=== PATIENT | female | born 1965 | race Caucasian/White ===

== ENCOUNTER 2017-03-18 08:26 | Emergency (ER) | payer MEDICAID ==
[~2017-03-18] VITALS: Wt 70.5 kg
[2017-03-18] MEDS ORDERED: KETOROLAC 30 MG INJ IV STA (09:08)
[2017-03-18] MEDS ORDERED: SOD CHLORIDE 0.9% 1,000 ML IV STA (09:08)
[2017-03-18] MEDS ORDERED: ONDANSETRON 4 MG INJ IV STA (09:08)
--- NOTE | 2017-03-18 09:19 | ERD ---
ER Documentation Chief Complaint Date/Time DATE: 03/18/17 Chief Complaint Diagnosed with cyst/pelvic mass today at [facility], sent here per patient HPI The patient is a 51-year-old female with no significant past medical history who presents the Emergency Department with complaint of abdominal pain that began approximately one year ago, but worsened on Thursday. The patient reports that her pain began gradually, with onset of constant, aching pain that sometimes radiates to the back. She reports associated nausea and vomiting since this morning, prompting her to visit [facility] Emergency Department. During her visit, a CT of the abdomen and pelvis was performed without contrast, which revealed a cystic versus cystic and solid mass midline, which may originate from the ovaries, though a uterine abnormality is not totally excluded. Given these findings, the patient was discharged home with prescription for Tramadol, and advised to present to this hospital for further evaluation and [employer]IST consultation. The patient therefore presents, concerned about her recent evaluation, and requesting further workup. She does admit to family history of uterine carcinoma, which her mother had. She denies any fevers, sweats, chills. Denies vaginal bleeding. Denies chest pain, palpitations, shortness of breath. Denies headache, dizziness or weakness. No other complaints at this time. The patient is . ROS All systems reviewed and are negative except as per history of present illness. Allergies Allergies: Coded Allergies: No Known Allergy (Unverified , 03/18/17) Physical Exam Vitals Vital Signs Date Time Temp Pulse Resp B/P Pulse Ox O2 Delivery O2 Flow Rate FiO2 03/18/17 16:11 74 18 127/69 99 Room Air 03/18/17 08:32 97.7 77 20 175/79 97 Physical Exam GENERAL: Well-developed, well-nourished, female, in no acute distress. HEENT: Head is normocephalic, atraumatic. No scleral pallor or icterus. Pupils equal, round and reactive to light. Extraocular movements intact. Conjunctiva pink. Moist mucous membranes. NECK: Supple. RESPIRATORY: Lungs are clear to auscultation bilaterally. Equal breath sounds. Normal expiratory effort. CARDIOVASCULAR: Regular rate and rhythm. S1 and S2 normal. Distal pulses are palpable, 2+ bilaterally. Capillary refill is less than 2 seconds. GASTROINTESTINAL: Abdomen is soft, non-tender and non-distended. No guarding, no rebound tenderness. Normal bowel sounds. No gross peritonitis. FLANK: No CVA tenderness. BACK: No midline tenderness. EXTREMITIES: No clubbing, cyanosis, or edema. Normal skin perfusion. Moving all extremities. NEUROLOGIC: The patient is alert, awake, and oriented x 3. No focal neurologic deficits. INTEGUMENT: Skin is intact. Warm and dry. PSYCHIATRIC: Cooperative. Appropriate. Result Diagram: 03/18/17 0955 03/18/17 0955 Results 24 hrs Laboratory Tests Test 03/18/17 09:55 03/18/17 12:14 White Blood Count 16.010^3/ul Red Blood Count 6.1710^6/ul Hemoglobin 14.4g/dl Hematocrit 45.8% Mean Corpuscular Volume 74.2fl Mean Corpuscular Hemoglobin 23.3pg Mean Corpuscular Hemoglobin Concent 31.4g/dl Red Cell Distribution Width 16.4% Platelet Count 00719^3/UL Mean Platelet Volume 9.3fl Neutrophils % 79.8% Lymphocytes % 13.3% Monocytes % 5.4% Eosinophils % 0.7% Basophils % 0.3% Nucleated Red Blood Cells % 0.0/100WBC Neutrophils # 12.810^3/ul Lymphocytes # 2.110^3/ul Monocytes # 0.910^3/ul Eosinophils # 0.110^3/ul Basophils # 0.010^3/ul Nucleated Red Blood Cells # 0.010^3/ul Prothrombin Time 11.7Sec Prothrombin Time Ratio 0.9 INR International Normalized Ratio 0.86 Activated Partial Thromboplast Time 26.7Sec Urine Color YELLOW Urine Clarity SLIGHTLY CLOUDY Urine pH 7.0 Urine Specific [place] 1.013 Urine Ketones NEGATIVEmg/dL Urine Nitrite NEGATIVEmg/dL Urine Bilirubin NEGATIVEmg/dL Urine Urobilinogen NEGATIVEmg/dL Urine Leukocyte Esterase TRACELeu/ul Urine Microscopic RBC 5/HPF Urine Microscopic WBC 2/HPF Urine Squamous Epithelial Cells FEW/HPF Urine Amorphous Crystals FEW/HPF Urine Mucus FEW/HPF Urine Hemoglobin 1+mg/dL Urine Glucose NEGATIVEmg/dL Urine Total Protein NEGATIVEmg/dl Sodium Level 142mmol/L Potassium Level 3.9mmol/L Chloride Level 102mmol/L Carbon Dioxide Level 29mmol/L Anion Gap 15 Blood Urea Nitrogen 11mg/dl Creatinine 0.60mg/dl Glucose Level 126mg/dl Calcium Level 9.0mg/dl Total Bilirubin 0.6mg/dl Direct Bilirubin 0.00mg/dl Indirect Bilirubin 0.6mg/dl Aspartate Amino Transf (AST/SGOT) 31IU/L Alanine Aminotransferase (ALT/SGPT) 39IU/L Alkaline Phosphatase 119IU/L Total Protein 8.7g/dl Albumin 4.2g/dl Globulin 4.50g/dl Albumin/Globulin Ratio 0.93 Lipase 42U/L Carcinoembryonic Antigen 0.5ng/ml CA 19-9 Antigen 3.5U/ml CA 125 Antigen 5.8U/ml Current Medications Medications (Trade) Dose Ordered Sig/Karin Route PRN Reason Start Time Stop Time Status Last Admin Dose Admin Sodium Chloride (NS) 1,000 ml @ 1,000 mls/hr Q1H STAT IV 03/18/17 09:08 03/18/17 10:07 DC 03/18/17 09:58 Ondansetron HCl (Zofran Inj) 4 mg ONCE STAT IV 03/18/17 09:08 03/18/17 09:12 DC 03/18/17 09:57 Ketorolac Tromethamine (Toradol) 30 mg ONCE STAT IV 03/18/17 09:08 03/18/17 09:12 DC 03/18/17 09:57 Procedures/MDM DIAGNOSTIC TESTS AND INTERPRETATION: PROCEDURE: US Pelvis. CLINICAL INDICATION: Pain. TECHNIQUE: Multiple transabdominal and transvaginal sonographic images of the pelvis were obtained. COMPARISON: None. FINDINGS: The uterus is anteverted in position and measures 8.1 x 3.3 x 4.0 cm ( 57 cc). The endometrial complex is homogeneous in echogenicity and measures 4.2 mm. The cervix is normal. There is no free pelvic fluid. The right ovary is not visualized. There is a large complex left adnexal cyst measuring nearly 7.0 cm in greatest dimension. Dense acoustic shadowing is seen within a portion of this cyst compatible with calcification. Numerous linear echoes are seen throughout the cystic portion of the structure. Constellation of imaging findings are most compatible with a large left ovarian dermoid. IMPRESSION: Large complex left adnexal cyst with imaging features most compatible with a large ovarian dermoid. .Mayra Barnhart MD, Date Time Electronically viewed and signed by .Mayra Barnhart MD, MD on 03/18/2017 11:20 CONSULTATION: Discussed patient case with [employer]IST specialist on-call, Dr. Busch , who evaluated the patient bedside and reviewed patient's imaging and results. She requests obtaining CEA, CA 19-9, CA125. She states that at this time, the patient's abdominal examination is benign, and there is absolutely no evidence of torsion. She notes that the patient's imaging findings were incidental, and there is no indication for admission or emergent surgical procedure at this time. She recommends that the patient be discharged home to follow up either with Dr. Curtis, Dr. Lopez, Dr. Cole, or [facility] for further evaluation and surgical removal. MEDICAL DECISION MAKING: This is a 51-year-old female presenting to the Emergency Department for evaluation due to recent abnormal CT imaging result. Patient was seen at another ED this morning, at which time she obtained a CT abdomen and pelvis, which revealed "a cystic versus cystic and solid mass midline which may originate from ovaries, a uterine abnormality is not totally excluded." Patient states that she was discharged, and advised to follow up at this ED for further evaluation. Patient had presented to the other ED due to chronic mid-abdominal pain, which is not currently present. Her abdominal examination was benign, and there is no evidence of acute/surgical abdomen. US imaging was performed, which revealed a large complex left andexal cyst, measuring nearly 7/0 cm in greatest dimension, with dense acoustic shadowing and numerous linear echoes. Patient's findings, per radiologist and Dr. Busch ([employer] PROGRAM SPECIALIST), are most compatible with ovarian dermoid. Patient was evaluated by OB/ HOSPITAL SUPERINTENDENT while in the ED, who recommended that the patient be discharged home to follow up as an outpatient for further evaluation and surgical removal of the adnexal mass. At this time, the patient is in stable condition, pain free, and therefore she will be discharged home with a copy of her laboratory and imaging results, and strict return precautions for signs of deteriorating or worsening condition. She is advised to follow up with an [facility] [employer] PROGRAM SPECIALIST or [facility] in 1-2 days for reevaluation and further management, or return to the ER sooner for any new, concerning or worsening symptoms. I shared my medical decision making and plan with the patient at length and in great detail, and she verbally understands and agrees with the plan for further observation and care as an outpatient. At the time of discharge, all questions were answered. Departure Diagnosis: Primary Impression: Adnexal mass Condition: Stable Patient Instructions: Ovarian Cyst, What Are Ovarian Cysts? Additional Instructions: Llame al doctor GABRIEL y dar carrie KRISTEN PARA DENTRO DE 1-2 SHEPARD.Dgale a la secretaria que nosotros le instruimos hacer esta kristen.Avise o llame si elliott condicin se empeora antes de la kristen. Regresa aqui si peor o no mejor. SANA JONAS PA-C Mar 18, 2017 09:19
[2017-03-18 10:10] LABS: BASOPHILS % 0.3 % (0.0-2.0); EOSINOPHILS # 0.1 10^3/ul (0.0-0.5); EOSINOPHILS % 0.7 % (0.0-7.0); HEMATOCRIT 45.8 % (37.0-47.0); HEMOGLOBIN 14.4 g/dl (12.0-16.0); LYMPHOCYTES # 2.1 10^3/ul (0.8-2.9); LYMPHOCYTES % 13.3 % (15.0-51.0); MEAN CORPUSCULAR HEMOGLOBIN 23.3 pg (29.0-33.0); MEAN CORPUSCULAR HGB CONC 31.4 g/dl (32.0-37.0); MEAN CORPUSCULAR VOLUME 74.2 fl (82.0-101.0); MEAN PLATELET VOLUME 9.3 fl (7.4-10.4); MONOCYTE # 0.9 10^3/ul (0.3-0.9); MONOCYTES % 5.4 % (0.0-11.0); NEUTROPHIL # 12.8 10^3/ul (1.6-7.5); NEUTROPHILS % 79.8 % (39.0-77.0); PLATELET COUNT 351 10^3/UL (140-415); RED BLOOD COUNT 6.17 10^6/ul (4.20-5.40); RED CELL DISTRIBUTION WIDTH 16.4 % (11.5-14.5)
[2017-03-18 10:25] LABS: INR 0.86; PROTIME 11.7 Sec (12.2-14.2); PT RATIO 0.9
[2017-03-18 10:26] LABS: PARTIAL THROMBOPLASTIN TIME 26.7 Sec (25.0-35.0)
[2017-03-18 10:30] LABS: ALBUMIN 4.2 g/dl (3.3-4.9); ALBUMIN/GLOBULIN RATIO 0.93; BILIRUBIN,INDIRECT 0.6 mg/dl (0-1.1); BILIRUBIN,TOTAL 0.6 mg/dl (0.2-1.3); CREATININE 0.6 mg/dl (0.44-1.00); POTASSIUM 3.9 mmol/L (3.5-5.1); TOTAL PROTEIN 8.7 g/dl (6.1-8.1)
[2017-03-18 10:53] LABS: ADD UMIC YES; UR AMORPHOUS CRYSTAL FEW /HPF (NONE SEEN); UR ASCORBIC ACID NEGATIVE (NEGATIVE); UR BILIRUBIN (Dip) NEGATIVE (NEGATIVE); UR BLOOD (Dip) 1+ mg/dL (NEGATIVE); UR CLARITY SLIGHTLY CLOUDY (CLEAR); UR COLOR YELLOW (YELLOW); UR GLUCOSE (Dip) NEGATIVE (NEGATIVE); UR KETONES (Dip) NEGATIVE (NEGATIVE); UR LEUKOCYTE ESTERASE (Dip) TRACE Leu/ul (NEGATIVE); UR MUCUS FEW /HPF (NONE SEEN); UR NITRITE (Dip) NEGATIVE (NEGATIVE); UR RBC 5 /HPF (0-5); UR SPECIFIC GRAVITY (Dip) 1.013 (1.003-1.030); UR SQUAMOUS EPITHELIAL CELL FEW /HPF (FEW); UR TOTAL PROTEIN (Dip) NEGATIVE (NEGATIVE); UR UROBILINOGEN (Dip) NEGATIVE (NEGATIVE)
--- NOTE | 2017-03-18 11:21 | RADRPT ---
PROCEDURE: US Pelvis. CLINICAL INDICATION: Pain. TECHNIQUE: Multiple transabdominal and transvaginal sonographic images of the pelvis were obtained . COMPARISON: None. FINDINGS: The uterus is anteverted in position and measures 8.1 x 3.3 x 4.0 cm (57 cc). The endometrial compl ex is homogeneous in echogenicity and measures 4.2 mm. The cervix is normal. There is no free pelv ic fluid. The right ovary is not visualized. There is a large complex left adnexal cyst measuring nearly 7.0 c m in greatest dimension. Dense acoustic shadowing is seen within a portion of this cyst compatible w ith calcification. Numerous linear echoes are seen throughout the cystic portion of the structure. C onstellation of imaging findings are most compatible with a large left ovarian dermoid. IMPRESSION: Large complex left adnexal cyst with imaging features most compatible with a large ovarian dermoid. RPTAT: HLST .Mayra Barnhart MD, Date Time Electronically viewed and signed by .Mayra Barnhart MD, on 03/18/2017 11:20 .T/
[2017-03-18 13:13] LABS: CANCER ANTIGEN 125 5.8 U/ml (0.0-35.0)
[2017-03-18 13:17] LABS: CANCER ANTIGEN 19-9 3.5 U/ml (0.0-37.0)
[2017-03-18 16:11] VITALS: BP 127/69; PULSE 74; RESP 18
--- NOTE | 2017-03-18 16:47 | CONS ---
Date/Time of Note Date/Time of Note DATE: 03/18/17 TIME: 16:40 Assessment/Plan Assessment/Plan Chief Complaint/Hosp Course 51-year-old female with complaint of mid to upper abdominal pain, nausea and vomiting Currently resolved. Umbilical hernia, nontender on palpation Incidental finding of 7 cm dermoid cyst in the left ovary tumor markers are negative. patient denied any pelvic pain. Exam benign. No evidence of acute abdomen. 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 At this time there is no evidence of torsion. Patient clinically stable What brought the patient emergency room per patient was mid to upper abdominal pain. Never reported lower abdominal pain or pelvic pain. Recommended Appropriate consultation for evaluation of upper abdominal pain by ED provider. Torsion precaution was given If patient discharged from ED recommended to be seen at [facility] FOR[facility] department at [facility] for follow up and surgery planning,. Plan has been discussed with the ED provider as well as patient All questions were answered Problems: Consultation Date/Type/Reason Admit Date/Time Date of Consultation: Mar 18, 2017 Type of Consultation: [employer] FOR[employer] MACHINE Reason for Consultation Adnexal cyst noted in pelvic ultrasound and abdominal pain Hx of Present Illness 51-year-old female postmenopausal presented to emergency room with complaint of abdominal pain. I was consulted by ED provider to evaluate due to finding of an adnexal mass noted in pelvic ultrasound and the left side compatible with ovarian dermoid. During history taking patient reported that she noted swelling in the mid abdomen around her umbilicus and mid to upper abdomen started since last year with some discomfort. Per patient pain in this area worsened since 4 days ago patient reported also nausea and vomiting.. Had apparently visits [facility] in the ED and was evaluated and discharged after she received pain medication. Patient currently at the time of exam denied any abdominal pain. She never complained of any pelvic pain. She points out her pain had been always around her umbilicus and her upper abdomen. Patient has been menopausal for the last 15 years and denies any postmenopausal bleeding. She reports mild postmenopausal symptoms. Currently denied any abdominal pain, nausea vomiting, fever or chills. Reports good appetite. Constitutional: no complaints Eyes: no complaints ENT: no complaints Respiratory: no complaints Cardiovascular: no complaints Gastrointestinal: pain Genitourinary: no complaints Musculoskeletal: no complaints Skin: no complaints Neurologic: no complaints Endocrine: no complaints Lymphatic: no complaints Psychological: no complaints Immunologic: no complaints Past Medical History Past medical history: Obesity Past Surgical History Past surgical history: 2 Family History Significant Family History: no pertinent family hx Social History Alcohol Use: none Smoking Status: Never smoker Drug Use: none Exam/Review of Systems Vital Signs Vitals Vital Signs Date Time Temp Pulse Resp B/P Pulse Ox O2 Delivery O2 Flow Rate FiO2 03/18/17 16:11 74 18 127/69 99 Room Air 03/18/17 08:32 97.7 Exam Constitutional: alert, oriented, well developed Psych: nl mood/affect, no complaints Head: atraumatic, normocephalic Eyes: EOMI, nl conjunctiva, nl lids ENMT: nl external ears & nose, nl lips & teeth, nl nasal mucosa & septum Neck: non-tender, supple Respiratory: clear to auscultation, normal air movement Cardiovascular: nl pulses, regular rate and rhythm Gastrointestinal: nl liver, spleen, non-tender, other ( ), soft Genitourinary - Female: other (SSE: Cervix normal, no abnormal lesion or discharge. BMEL uterus normal size, no, tendernes in adnexa, no tenderness in palpation of the lower abdomen or pelvie tenderness noted.) Extremities: normal pulses Neurological: ROAD REPAIRER II-XII intact, nl mental status Results Result Diagram: 03/18/17 0955 03/18/17 0955 Results 24 hrs Laboratory Tests Test 03/18/17 09:55 03/18/17 12:14 White Blood Count 16.0 H Red Blood Count 6.17 H Hemoglobin 14.4 Hematocrit 45.8 Mean Corpuscular Volume 74.2 L Mean Corpuscular Hemoglobin 23.3 L Mean Corpuscular Hemoglobin Concent 31.4 L Red Cell Distribution Width 16.4 H Platelet Count 351 Mean Platelet Volume 9.3 Neutrophils % 79.8 H Lymphocytes % 13.3 L Monocytes % 5.4 Eosinophils % 0.7 Basophils % 0.3 Nucleated Red Blood Cells % 0.0 Neutrophils # 12.8 H Lymphocytes # 2.1 Monocytes # 0.9 Eosinophils # 0.1 Basophils # 0.0 Nucleated Red Blood Cells # 0.0 Prothrombin Time 11.7 L Prothrombin Time Ratio 0.9 INR International Normalized Ratio 0.86 Activated Partial Thromboplast Time 26.7 Urine Color YELLOW Urine Clarity SLIGHTLY CLOUDY A Urine pH 7.0 Urine Specific [place] 1.013 Urine Ketones NEGATIVE Urine Nitrite NEGATIVE Urine Bilirubin NEGATIVE Urine Urobilinogen NEGATIVE Urine Leukocyte Esterase TRACE A Urine Microscopic RBC 5 Urine Microscopic WBC 2 Urine Squamous Epithelial Cells FEW Urine Amorphous Crystals FEW A Urine Mucus FEW A Urine Hemoglobin 1+ H Urine Glucose NEGATIVE Urine Total Protein NEGATIVE Sodium Level 142 Potassium Level 3.9 Chloride Level 102 Carbon Dioxide Level 29 Anion Gap 15 Blood Urea Nitrogen 11 Creatinine 0.60 Glucose Level 126 Calcium Level 9.0 Total Bilirubin 0.6 Direct Bilirubin 0.00 Indirect Bilirubin 0.6 Aspartate Amino Transf (AST/SGOT) 31 Alanine Aminotransferase (ALT/SGPT) 39 Alkaline Phosphatase 119 Total Protein 8.7 H Albumin 4.2 Globulin 4.50 H Albumin/Globulin Ratio 0.93 Lipase 42 Carcinoembryonic Antigen 0.5 CA 19-9 Antigen 3.5 CA 125 Antigen 5.8 Imaging Free Text/Dictation PROCEDURE: US Pelvis. CLINICAL INDICATION: Pain. TECHNIQUE: Multiple transabdominal and transvaginal sonographic images of the pelvis were obtained. COMPARISON: None. FINDINGS: The uterus is anteverted in position and measures 8.1 x 3.3 x 4.0 cm (57 cc). The endometrial complex is homogeneous in echogenicity and measures 4.2 mm. The cervix is normal. There is no free pelvic fluid. The right ovary is not visualized. There is a large complex left adnexal cyst measuring nearly 7.0 cm in greatest dimension. Dense acoustic shadowing is seen within a portion of this cyst compatible with calcification. Numerous linear echoes are seen throughout the cystic portion of the structure. Constellation of imaging findings are most compatible with a large left ovarian dermoid. IMPRESSION: Large complex left adnexal cyst with imaging features most compatible with a large ovarian dermoid. RPTAT: ESTHER VILLA MD Mar 18, 2017 16:47
== END 2017-03-18 16:18 | disposition home or self-care (01) ==
LOC: FTE 08:26
DX: N83.8 Other noninflammatory disorders of ovary, fallopian tube and broad ligament (principal); R10.2 Pelvic and perineal pain
CPT/HCPCS: 36415; 76830; 76856; 80053; 81001; 82378; 83690; 85025; 85610; 85730; 86301; 86304; 86850; 86900; 86901; 96374; 96375; J1885; J2405; J7030; Z7502

== ENCOUNTER 2018-03-19 12:02 | Emergency (ER) | END 2018-03-19 15:28 | disposition home or self-care (01) ==